=== PATIENT | male | born 1995 | race Caucasian/White ===

== ENCOUNTER 2022-07-28 03:30 | Emergency (ER) | payer OTHER ==
[~2022-07-28] VITALS: Ht 175.3 cm; Wt 75.0 kg
[2022-07-28 03:39] VITALS: BP 123/59
== END 2022-07-28 04:09 | disposition home or self-care (01) ==
LOC: ER 03:31
DX: R04.0 Epistaxis (principal); R42 Dizziness and giddiness
CPT/HCPCS: 99281